=== PATIENT | female | born 1955 | race Caucasian/White ===

== ENCOUNTER → 2019-06-04 | Outpatient (CLI) | payer BC ==
--- NOTE | 2019-06-04 11:07 | RAD ---
Examination: MRI of the left shoulder without contrast HISTORY: History of decreased range of motion, adhesive capsulitis COMPARISON: None available TECHNIQUE: Multiplanar, multisequence MR imaging of the left shoulder were performed without contrast. FINDINGS: The long head of the biceps tendon within the bicipital groove. The attachment of the long head the biceps tendon to the superior labral anchor grossly appears intact. Mild increased T2 signal identified at the attachment of the subscapularis, supraspinatus and infraspinatus tendon likely mild tendinosis. No evidence of full-thickness tear of the rotator cuff. The muscle bulk grossly appears unremarkable. Faint questionable increased T2 signal identified in the superior labrum could be a subtle SLAP tear. There is mild increased T2 signal identified in the inferior glenohumeral ligament region. There is obscuration of fat in the rotator interval. The acromion is type II. Mild degenerative changes identified. IMPRESSION: 1. Findings consistent with adhesive capsulitis. 2. Rotator cuff tendinosis. 3. Questionable subtle SLAP tear. Electronically signed by: Andrew Cordova MD (06/04/2019 11:05 AM) [id number]
== END | disposition home or self-care (01) ==
LOC: MRI 08:17
PROVIDERS: ATTEND Family Medicine
DX: M75.02 Adhesive capsulitis of left shoulder (principal)
CPT/HCPCS: 73221